=== PATIENT | male | born 1960 | race Caucasian/White ===

== ENCOUNTER 2016-07-07 22:05 | Emergency (ER) | payer MEDICARE, OTHER ==
[2016-12-10] MEDS ORDERED: PROVENTIL HFA 61 INH INH (08:17)
[2016-12-10] MEDS ORDERED: ALPRAZOLAM0.5 MG PO (08:18)
[2016-12-10] MEDS ORDERED: ELAVIL 50 MG TA50 MG PO (08:18)
[2016-12-10] MEDS ORDERED: COLACE 100MG C100 MG PO (08:19)
[2016-12-10] MEDS ORDERED: CARDIZEM CD120 MG PO (08:19)
[2016-12-10] MEDS ORDERED: ZESTRIL20 MG PO (08:20)
[2016-12-10] MEDS ORDERED: CLARITIN10 M2 PO (08:21)
[2016-12-10] MEDS ORDERED: LASIX40 MG PO (08:21)
[2016-12-10] MEDS ORDERED: MOBIC15 MG PO (08:22)
[2016-12-10] MEDS ORDERED: METHADONE HCL T10 MG PO (08:23)
[2016-12-10] MEDS ORDERED: NEURONTIN 400400 MG PO (08:23)
[2016-12-10] MEDS ORDERED: ROXICODONE30 MG PO (08:24)
[2016-12-10] MEDS ORDERED: MIRALAX17 GM PO (08:26)
[2016-12-10] MEDS ORDERED: ZANTAC 150 MG150 MG PO (08:27)
[2016-12-10] MEDS ORDERED: PROTONIX40 MG PO (08:28)
[2016-12-10] MEDS ORDERED: SYNTHROID175 MCG PO (08:29)
== END 2016-07-07 23:57 | disposition left against medical advice (07) ==
LOC: ER1 22:05 → EDBD 22:05 → ER1 23:57
DX: Z53.21 Procedure and treatment not carried out due to patient leaving prior to being seen by health care provider (principal)

== ENCOUNTER → 2016-09-20 | Outpatient (CLI) | payer MEDICARE, OTHER ==
[~2016-09-20] MED LIST: ALPRAZOLAM0.5 MG PO; CARDIZEM CD120 MG PO; CLARITIN10 M2 PO; COLACE 100MG C100 MG PO; ELAVIL 50 MG TA50 MG PO; LASIX40 MG PO; METHADONE HCL T10 MG PO; MIRALAX17 GM PO; MOBIC15 MG PO; NEURONTIN 400400 MG PO; PROTONIX40 MG PO; PROVENTIL HFA 61 INH INH; ROXICODONE30 MG PO; SYNTHROID175 MCG PO; ZANTAC 150 MG150 MG PO; ZESTRIL20 MG PO
[2016-09-20 08:35] LABS: HEMOGLOBIN 14.7 gm/dl (14.0-17.5); RED BLOOD COUNT 4.96 M/UL (4.20-5.50); WHITE BLOOD COUNT 5.2 K/UL (4.5-11.0)
[2016-09-20 08:57] LABS: BUN/CREATININE RATIO 22 (0-10)
== END ==
LOC: EDBD 07:49 → RAD 07:49
PROVIDERS: Nurse Practitioner Psychiatric/Mental Health
DX: J20.9 Acute bronchitis, unspecified (principal); R53.83 Other fatigue
CPT/HCPCS: 36415; 71020; 80048; 84402; 84403; 84439; 84443; 84481; 85025

== ENCOUNTER → 2016-10-15 | Outpatient (CLI) | payer MEDICARE, OTHER | LOC: HEART 5 14:30 → EDBD 14:30 → HEART 5 15:30 | DX: R06.02 Shortness of breath (principal) | CPT/HCPCS: 93306 ==

== ENCOUNTER → 2020-04-27 | Outpatient (CLI) | payer MEDICARE, OTHER | LOC: RAD 15:12 | DX: M48.061 Spinal stenosis, lumbar region without neurogenic claudication (principal); M51.36 Other intervertebral disc degeneration, lumbar region; M47.816 Spondylosis without myelopathy or radiculopathy, lumbar region; M48.07 Spinal stenosis, lumbosacral region | CPT/HCPCS: 72100 ==

== ENCOUNTER 2020-06-07 14:55 | Emergency (ER) | payer MEDICARE, OTHER | END 2020-06-07 17:46 | disposition left against medical advice (07) | LOC: ER1 14:55 | DX: Z53.21 Procedure and treatment not carried out due to patient leaving prior to being seen by health care provider (principal) ==

== ENCOUNTER → 2020-06-19 | Outpatient (CLI) | payer MEDICARE, OTHER ==
[2020-06-19 16:15] LABS: HEMOGLOBIN 12.7 gm/dl (14.0-17.5); RED BLOOD COUNT 4.71 M/UL (4.20-5.50); WHITE BLOOD COUNT 10.2 K/UL (4.5-11.0)
[2020-06-20 09:28] LABS: BUN/CREATININE RATIO 17 (0-10)
== END ==
LOC: LAB 11:55
PROVIDERS: Internal Medicine Cardiovascular Disease
DX: I48.91 Unspecified atrial fibrillation (principal); E04.1 Nontoxic single thyroid nodule; E78.5 Hyperlipidemia, unspecified; R06.89 Other abnormalities of breathing; R06.02 Shortness of breath
CPT/HCPCS: 36415; 80053; 80061; 83735; 83880; 84443; 85025

== ENCOUNTER → 2020-07-07 | Outpatient (CLI) | payer MEDICARE, OTHER | LOC: RAD 07:57 | DX: T17.920A Food in respiratory tract, part unspecified causing asphyxiation, initial encounter (principal) | CPT/HCPCS: 74220 ==

== ENCOUNTER → 2020-08-02 | Outpatient (CLI) | payer MEDICARE, OTHER ==
[2020-08-02 15:42] LABS: RED BLOOD COUNT 4.41 M/UL (4.20-5.50); WHITE BLOOD COUNT 11.4 K/UL (4.5-11.0)
== END ==
LOC: US 08-01 15:00
PROVIDERS: Nurse Practitioner Family
DX: R60.0 Localized edema (principal); I10 Essential (primary) hypertension; E78.5 Hyperlipidemia, unspecified; E03.9 Hypothyroidism, unspecified; N40.0 Benign prostatic hyperplasia without lower urinary tract symptoms; E55.9 Vitamin D deficiency, unspecified; M25.561 Pain in right knee; M79.671 Pain in right foot; M17.11 Unilateral primary osteoarthritis, right knee; M19.071 Primary osteoarthritis, right ankle and foot
CPT/HCPCS: 36415; 73562; 73630; 80053; 80061; 83880; 84153; 84443; 85025; 93971

== ENCOUNTER → 2020-08-16 | Outpatient (CLI) | payer MEDICARE, OTHER ==
[2020-08-16 15:47] LABS: HEMOGLOBIN 11.9 gm/dl (14.0-17.5); RED BLOOD COUNT 4.35 M/UL (4.20-5.50); WHITE BLOOD COUNT 8.4 K/UL (4.5-11.0)
[2020-08-17 12:14] LABS: RHEUMATOID ARTHRITIS FACTOR <10.0 IU/mL (0.0-13.9)
[2020-08-18 00:09] LABS: CCP ANTIBODIES IGG/IGA 40 units (0-19)
[2020-08-18 19:11] LABS: ATYPICAL PANCA <1:20 titer (Neg:<1:20); CYTOPLASMIC (C-ANCA) 1:40 titer (Neg:<1:20); PERINUCLEAR (P-ANCA) <1:20 titer (Neg:<1:20)
[2020-08-24 14:11] LABS: ANTI 68KD (HSP 70) ABS Positive (Negative)
== END ==
LOC: LAB 14:04
PROVIDERS: Nurse Practitioner Family
DX: R60.9 Edema, unspecified (principal); R73.9 Hyperglycemia, unspecified; J84.9 Interstitial pulmonary disease, unspecified; D72.829 Elevated white blood cell count, unspecified
CPT/HCPCS: 36415; 80053; 83036; 83880; 85025; 86038; 86200; 86256; 86431

== ENCOUNTER → 2020-10-03 | Outpatient (CLI) | payer MEDICARE, OTHER ==
[2020-10-03 17:15] LABS: HEMOGLOBIN 12.5 gm/dl (14.0-17.5); RED BLOOD COUNT 4.38 M/UL (4.20-5.50); WHITE BLOOD COUNT 7.7 K/UL (4.5-11.0)
[2020-10-05 12:15] LABS: ANTI-CENTROMERE B ANTIBODIES <0.2 AI (0.0-0.9); ANTI-DNA (DS) AB QN 1 IU/mL (0-9); ANTI-JO-1 <0.2 AI (0.0-0.9); ANTICHROMATIN ANTIBODIES <0.2 AI (0.0-0.9); ANTISCLERODERMA-70 ANTIBODIES <0.2 AI (0.0-0.9); RNP ANTIBODIES 0.2 AI (0.0-0.9); SJOGREN'S ANTI-SS-A 0.2 AI (0.0-0.9); SJOGREN'S ANTI-SS-B <0.2 AI (0.0-0.9); SMITH ANTIBODIES 0.2 AI (0.0-0.9)
[2020-10-07 19:08] LABS: ANTIMYELOPEROXIDASE (MPO) ABS <9.0 U/mL (0.0-9.0); ANTIPROTEINASE 3 (PR-3) ABS 5.4 U/mL (0.0-3.5); CYTOPLASMIC (C-ANCA) <1:20 titer (Neg:<1:20); PERINUCLEAR (P-ANCA) <1:20 titer (Neg:<1:20)
[2020-10-30 13:59] LABS: ATYPICAL PANCA <1:20 titer (Neg:<1:20)
== END ==
LOC: LAB 15:32
PROVIDERS: Internal Medicine Pulmonary Disease; Nurse Practitioner Family
DX: Z00.00 Encounter for general adult medical examination without abnormal findings (principal); T17.920A Food in respiratory tract, part unspecified causing asphyxiation, initial encounter; K21.9 Gastro-esophageal reflux disease without esophagitis; I48.91 Unspecified atrial fibrillation; R10.9 Unspecified abdominal pain; R79.89 Other specified abnormal findings of blood chemistry; H35.61 Retinal hemorrhage, right eye; J84.9 Interstitial pulmonary disease, unspecified; R14.3 Flatulence
CPT/HCPCS: 36415; 74019; 80053; 80061; 82150; 83036; 83520; 83690; 83735; 83880; 84443; 85025; 85610; 85652; 85730; 86038; 86140; 86200; 86225; 86235; 86256; 86431

== ENCOUNTER → 2020-10-10 | Outpatient (CLI) | payer MEDICARE, OTHER | LOC: LAB 15:41 | PROVIDERS: Nurse Practitioner Family | DX: R79.89 Other specified abnormal findings of blood chemistry (principal) | CPT/HCPCS: 36415; 80053 ==

== ENCOUNTER 2020-12-02 13:56 | Emergency (ER) | payer MEDICARE, OTHER ==
[~2020-12-02] VITALS: Ht 167.6 cm; Wt 136.1 kg
[2020-12-02 15:18] LABS: HEMOGLOBIN 12.4 gm/dl (14.0-17.5); RED BLOOD COUNT 4.49 M/UL (4.20-5.50); WHITE BLOOD COUNT 3.6 K/UL (4.5-11.0)
[2020-12-02 15:47] LABS: BUN/CREATININE RATIO 23 (0-10)
== END 2020-12-02 20:49 | disposition home or self-care (01) ==
LOC: ER1 13:56
PROVIDERS: Physician Assistant
DX: Z23 Encounter for immunization (principal); U07.1 COVID-19; J44.9 Chronic obstructive pulmonary disease, unspecified; I12.9 Hypertensive chronic kidney disease with stage 1 through stage 4 chronic kidney disease, or unspecified chronic kidney disease; N18.9 Chronic kidney disease, unspecified
CPT/HCPCS: 36600; 71045; 80053; 82550; 82553; 82803; 83735; 83874; 84484; 85025; 93005; 99285; M0243

== ENCOUNTER 2021-05-31 10:49 | Emergency (ER) | payer MEDICARE, OTHER ==
[2021-05-31 12:21] LABS: HEMOGLOBIN 10.7 gm/dl (14.0-17.5); RED BLOOD COUNT 4.1 M/UL (4.20-5.50); WHITE BLOOD COUNT 7.5 K/UL (4.5-11.0)
== END 2021-05-31 15:05 | disposition home or self-care (01) ==
LOC: ER1 10:49
PROVIDERS: Emergency Medicine
DX: I12.9 Hypertensive chronic kidney disease with stage 1 through stage 4 chronic kidney disease, or unspecified chronic kidney disease (principal); N18.9 Chronic kidney disease, unspecified; D64.9 Anemia, unspecified; I48.91 Unspecified atrial fibrillation; E11.22 Type 2 diabetes mellitus with diabetic chronic kidney disease; E78.5 Hyperlipidemia, unspecified
CPT/HCPCS: 71045; 80053; 82550; 82553; 83874; 83880; 84484; 85025; 99284

== ENCOUNTER 2021-07-26 19:56 | Emergency (ER) | payer MEDICARE, OTHER | END 2021-07-26 22:44 | disposition left against medical advice (07) | LOC: ER1 19:56 | DX: Z53.21 Procedure and treatment not carried out due to patient leaving prior to being seen by health care provider (principal) ==

== ENCOUNTER → 2021-08-01 | Outpatient (CLI) | payer MEDICARE, OTHER ==
[2021-08-01 17:33] LABS: RED BLOOD COUNT 4.57 M/UL (4.20-5.50); WHITE BLOOD COUNT 12.8 K/UL (4.5-11.0)
== END ==
LOC: LAB 16:44
PROVIDERS: Internal Medicine
DX: Z12.5 Encounter for screening for malignant neoplasm of prostate (principal); M34.9 Systemic sclerosis, unspecified; N18.31 Chronic kidney disease, stage 3a; E11.42 Type 2 diabetes mellitus with diabetic polyneuropathy
CPT/HCPCS: 36415; 80069; 82570; 84156; 85027; G0103